=== PATIENT | female | born 1970 | race Caucasian/White ===

== ENCOUNTER 2016-05-14 10:29 | Emergency (ER) | payer OTHER ==
[~2016-05-14] VITALS: Ht 170.2 cm; Wt 117.1 kg
[~2016-05-14 10:29] MED LIST: ADVIL,NUPRIN,M200 MG PO; AMLODIPINE BESY10 MG PO; AMOX TR-K CLV1 EAC4 PO; FLUOXETINE HCL40 MG PO; OXYCODONE HCL15 MG PO; OXYCODONE HCL30 MG PO; PEN-VEE K,VEET500 MG PO; SEROQUEL300 MG PO; TRAMADOL HCL50 MG PO
[2016-05-14 11:12] LABS: HEMATOCRIT 39.4 % (36.0-46.0); MCH 29.5 PG (29.0-34.0); MCHC 33.5 G/DL (30.0-36.0); MCV 88.1 FL (83-99); MEAN PLAT.VOLUME 9.1 uM^3 (9.5-12.4); PLATELET COUNT 214 K/uL (156-360); RBC DIS.WIDTH-CV 12.2 % (11.8-14.6); RBC DIS.WIDTH-SD 38.4 % (39-53); RED BLOOD COUNT 4.47 M/uL (3.80-5.20)
[2016-05-14 11:21] LABS: CHLORIDE 106 mEq/L (99-109); POTASSIUM 3.9 mEq/L (3.7-5.4); SODIUM 142 mEq/L (136-147)
[2016-05-14 11:23] LABS: GLUCOSE 97 mg/dL (70-99)
[2016-05-14 11:24] LABS: ANION GAP 9 MEQ/L (2-14)
[2016-05-14 11:27] LABS: GFR ESTIMATE (CALCULATED) > 59 mL/min/
[2016-05-14 11:28] LABS: UREA NITROGEN (BUN) 13 mg/dL (9-23)
[2016-05-14 11:35] LABS: TROP-I INTERPRETATION NEGATIVE; TROPONIN-I < 0.01 ng/mL (0.0-0.30)
[2016-05-14 12:07] VITALS: BP 113/89
[2016-05-14 12:31] VITALS: BP 114/69
[2016-05-14 12:41] LABS: INFLUENZA A VIRAL ANTIGEN NEGATIVE; INFLUENZA B VIRAL ANTIGEN NEGATIVE
[2016-05-14 13:01] VITALS: BP 112/79
[2016-05-14 13:31] VITALS: BP 147/86
[2016-05-14 13:44] LABS: TROP-I INTERPRETATION NEGATIVE; TROPONIN-I < 0.01 ng/mL (0.0-0.30)
[2016-05-14 14:01] VITALS: BP 116/86
[2016-05-14] MEDS ORDERED: PREDNISONE20 MG PO (14:03)
[2016-05-14] MEDS ORDERED: VENTOLIN HFA18 GM IH (14:03)
[2016-05-14 14:15] VITALS: BP 116/86
== END 2016-05-14 14:15 | disposition home or self-care (01) ==
LOC: EXP 10:29 → EME 10:29 → EXP 14:15
PROVIDERS: Physician Assistant
DX: J98.01 Acute bronchospasm (principal); J06.9 Acute upper respiratory infection, unspecified; R07.89 Other chest pain
CPT/HCPCS: 71020; 80048; 83880; 84484; 85027; 87502; 93005; 94640; 99281; 99284; J7512

== ENCOUNTER 2016-05-23 11:35 | Emergency (ER) | payer OTHER ==
[~2016-05-23] VITALS: Ht 170.2 cm; Wt 117.9 kg
[~2016-05-23 11:35] MED LIST changes: +PREDNISONE20 MG PO; +VENTOLIN HFA18 GM IH
[2016-05-23 12:58] LABS: HEMATOCRIT 41.5 % (36.0-46.0); MCH 29.1 PG (29.0-34.0); MCHC 32.8 G/DL (30.0-36.0); MCV 88.7 FL (83-99); MEAN PLAT.VOLUME 9.2 uM^3 (9.5-12.4); PLATELET COUNT 235 K/uL (156-360); RBC DIS.WIDTH-CV 12.4 % (11.8-14.6); RBC DIS.WIDTH-SD 39.1 % (39-53); RED BLOOD COUNT 4.68 M/uL (3.80-5.20)
[2016-05-23 12:59] LABS: WHITE BLOOD COUNT 11.1 K/uL (4.1-10.2)
[2016-05-23 13:05] LABS: CHLORIDE 105 mEq/L (99-109); POTASSIUM 3.8 mEq/L (3.7-5.4); SODIUM 140 mEq/L (136-147)
[2016-05-23 13:07] LABS: GLUCOSE 89 mg/dL (70-99)
[2016-05-23 13:09] LABS: ANION GAP 8 MEQ/L (2-14)
[2016-05-23 13:11] LABS: GFR ESTIMATE (CALCULATED) > 59 mL/min/
[2016-05-23 13:12] LABS: UREA NITROGEN (BUN) 18 mg/dL (9-23)
[2016-05-23 13:18] LABS: TROP-I INTERPRETATION NEGATIVE; TROPONIN-I < 0.01 ng/mL (0.0-0.30)
[2016-05-23 19:29] LABS: TROP-I INTERPRETATION NEGATIVE; TROPONIN-I < 0.01 ng/mL (0.0-0.30)
[2016-05-23 20:23] VITALS: BP 109/45
== END 2016-05-23 20:23 | disposition home or self-care (01) ==
LOC: EME 11:35
PROVIDERS: Physician Assistant
DX: R06.02 Shortness of breath (principal); Z87.09 Personal history of other diseases of the respiratory system; R07.9 Chest pain, unspecified; R05 Cough; G89.29 Other chronic pain; Z79.891 Long term (current) use of opiate analgesic
CPT/HCPCS: 71020; 71275; 80048; 84484; 85027; 93005; 99281; 99285; J7030

== ENCOUNTER 2016-10-02 08:37 | Day surgery (SDC) | payer OTHER ==
[~2016-10-02] VITALS: Ht 170.2 cm; Wt 125.1 kg
[~2016-10-02 08:37] MED LIST changes: +ADVAIR 250/501 DISK IH; +BRINTELLIX10 MG PO; +DOXEPIN HCL50 MG PO; +PROAIR RESPICL90 MCG IH; +PROVENTIL,2.5 MG/3 M IH; +REXULTI1 MG PO; +VERAPAMIL HCL240 MG PO
== END 2016-10-02 10:07 | disposition home or self-care (01) ==
LOC: PAIN 08:37 → SDC 09:15 → PAIN 09:15
DX: M47.816 Spondylosis without myelopathy or radiculopathy, lumbar region (principal); M54.5 Low back pain; M43.16 Spondylolisthesis, lumbar region; M51.36 Other intervertebral disc degeneration, lumbar region; M79.1 Myalgia; F41.8 Other specified anxiety disorders; J44.9 Chronic obstructive pulmonary disease, unspecified; Z79.891 Long term (current) use of opiate analgesic; I25.10 Atherosclerotic heart disease of native coronary artery without angina pectoris; I10 Essential (primary) hypertension; D50.8 Other iron deficiency anemias
CPT/HCPCS: J1030; J2250; J3010; S0020

== ENCOUNTER 2016-12-25 12:58 | Day surgery (SDC) | payer OTHER ==
[~2016-12-25] VITALS: Ht 170.2 cm; Wt 127.9 kg
== END 2016-12-25 14:30 | disposition home or self-care (01) ==
LOC: PAIN 12:58
DX: M47.816 Spondylosis without myelopathy or radiculopathy, lumbar region (principal); M54.5 Low back pain; G89.29 Other chronic pain; M51.36 Other intervertebral disc degeneration, lumbar region; M79.1 Myalgia; I10 Essential (primary) hypertension; I25.10 Atherosclerotic heart disease of native coronary artery without angina pectoris; J44.9 Chronic obstructive pulmonary disease, unspecified; J45.20 Mild intermittent asthma, uncomplicated; E66.01 Morbid (severe) obesity due to excess calories; Z68.41 Body mass index [BMI] 40.0-44.9, adult; Z79.891 Long term (current) use of opiate analgesic
CPT/HCPCS: J1030; J2250; J3010; S0020

== ENCOUNTER 2017-01-01 09:07 | Day surgery (SDC) | payer OTHER ==
[~2017-01-01] VITALS: Ht 170.2 cm; Wt 127.9 kg
== END 2017-01-01 10:55 | disposition home or self-care (01) ==
LOC: PAIN 09:07 → SDC 09:30 → PAIN 09:30
DX: M47.816 Spondylosis without myelopathy or radiculopathy, lumbar region (principal); M54.5 Low back pain; G89.29 Other chronic pain; M51.36 Other intervertebral disc degeneration, lumbar region; M43.16 Spondylolisthesis, lumbar region; M79.1 Myalgia; J44.9 Chronic obstructive pulmonary disease, unspecified; I10 Essential (primary) hypertension; J45.20 Mild intermittent asthma, uncomplicated; E66.01 Morbid (severe) obesity due to excess calories; Z68.41 Body mass index [BMI] 40.0-44.9, adult; E55.9 Vitamin D deficiency, unspecified; Z79.891 Long term (current) use of opiate analgesic
CPT/HCPCS: 93005; J1030; J2250; J3010; S0020